=== PATIENT | female | born 1960 | race Caucasian/White ===

== ENCOUNTER 2016-10-21 13:42 | Emergency (ER) | payer BC ==
[2016-10-21 14:25] VITALS: BP 115/83
--- NOTE | 2016-10-21 15:02 | UC ---
Abdominal Pain Female HPI - HPI Summary HPI Summary: epigastric abdominal pain x 3 days no fever, no chills, no n/v/d/c no urinary symptoms - History of Current Complaint Chief Complaint: UCAbdominalPain Stated Complaint: ABDOMINAL DISCOMFORT Time Seen by Provider: 10/21/16 14:01 Hx Obtained From: Patient Hx Last Menstrual Period: 10/07/16 ?: No Onset/Duration: Gradual Onset, Lasting Days - 3, Still Present Timing: Constant Severity Initially: Moderate Severity Currently: Moderate Location: Epigastric Radiates: No Character: Aching, Dull Aggravating Factor(s): Nothing Alleviating Factor(s): Nothing Associated Signs and Symptoms: Negative: Diaphoresis, Fever, Cough, Chest Pain, Dizzy, Back Pain, Constipation, Blood in Stool, Urinary Symptoms, Decreased Appetite, Vaginal Bleeding, Vaginal Discharge, Nausea, Vomiting, Diarrhea Allergies/Adverse Reactions: Allergies Allergy/AdvReac Type Severity Reaction Status Date / Time Hydrocodone Allergy Mild Nausea And Verified 11/23/14 10:26 Vomiting Home Medications: Home Medications Aspirin [Aspirin 81 MG TAB] 81 mg PO PRN 10/21/16 [History] Atorvastatin* [Lipitor*] 10 mg PO 1700 10/21/16 [History Confirmed 10/21/16] Ibuprofen TAB* [Motrin TAB* 800 MG] 800 mg PO Q6H 10/21/16 [History Confirmed ] PMH/Surg Hx/FS Hx/Imm Hx - Additional Past Medical History Additional PMH: hx of PE Endocrine History Of: Denies: Diabetes, Thyroid Disease Cardiovascular History Of: Denies: Cardiac Disorders, Hypertension Respiratory History Of: Denies: COPD, Asthma GI/ History Of: Denies: Ulcer - Surgical History Surgical History: Yes Surgery Procedure, Year, and Place: polyp removal of uterus - Family History Known Family History: Negative: Diabetes - Social History Alcohol Use: Weekly Substance Use Type: None Smoking Status (MU): Never Smoked Tobacco - Immunization History Most Recent Influenza Vaccination: Fall 2013 Review of Systems Constitutional: Negative Skin: Negative Eyes: Negative ENT: Negative Respiratory: Negative Cardiovascular: Negative Gastrointestinal: Abdominal Pain Genitourinary: Negative All Other Systems Reviewed And Are Negative: Yes Physical Exam Triage Information Reviewed: Yes Appearance: Well-Appearing, No Pain Distress, Well-Nourished Vital Signs: Initial Vital Signs Temp 99.1 F 10/21/16 14:08 Pulse 82 10/21/16 14:08 Resp 16 10/21/16 14:08 BP 115/83 10/21/16 14:08 Pulse Ox 100 10/21/16 14:08 Vital Signs Reviewed: Yes Eyes: Positive: Conjunctiva Clear ENT: Positive: Normal ENT inspection, Hearing grossly normal, Pharynx normal Neck: Positive: Supple, Nontender, No Lymphadenopathy Respiratory: Positive: Chest non-tender, Lungs clear, Normal breath sounds Cardiovascular Exam: Normal Cardiovascular: Positive: RRR, No Murmur, Pulses Normal Abdomen Description: Positive: Soft, Other: - + epigastic tenderness. Negative : CVA Tenderness (R), CVA Tenderness (L), Distended, Guarding Bowel Sounds: Positive: Present Abd Pain Female Course/Dx - Differential Dx/Diagnosis Provider Diagnoses: epigastric abdominal pain Discharge - Discharge Plan Condition: Stable Disposition: HOME Prescriptions: Omeprazole 40 mg PO DAILY #15 cap Patient Education Materials: Abdominal Pain (ED) Referrals: Columba Kelley MD [Primary Care Provider] - 7 Days Additional Instructions: will do blood work to check your liver, pancreas and check Ddimer to R/O PE call the office tomorrow for the test results Dx: ? gastritis , please stop taking Ibuprofen , will start Omeprazol
[2016-10-21 18:33] LABS: Albumin 4.5 g/dL (3.2-5.2); BUN/Creatinine Ratio 19.2 (8-20); Calcium 9.8 mg/dL (8.6-10.3); EGFR African American 106.4 (>60); EGFR Non-African American 82.8 (>60); Globulin 2.1 g/dL (2-4); Potassium 4.7 mmol/L (3.5-5.0); Total Bilirubin 0.4 mg/dL (0.2-1.0); Total Protein 6.6 g/dL (6.4-8.9)
[2016-10-21] MEDS ORDERED: Meclizine TAB* 12.5 MG PO ONE (20:51)
== END 2016-10-21 15:19 | disposition home or self-care (01) ==
LOC: UCCORT 13:42
DX: R10.13 Epigastric pain (principal); Z88.5 Allergy status to narcotic agent; Z86.711 Personal history of pulmonary embolism; Z79.82 Long term (current) use of aspirin
CPT/HCPCS: 36415; 80053; 81003; 82150; 83690; 85379; 87086; 99212; G0463